=== PATIENT | female | born 1955 | race Caucasian/White ===

== ENCOUNTER 2019-08-27 10:41 | Emergency (ER) | payer MEDICARE ==
[~2019-08-27] VITALS: Ht 152.4 cm; Wt 79.2 kg
[2019-08-27 10:58] LABS: BASOPHILS % (AUTO) 0.6 % (0-1); EOSINOPHILS # (AUTO) 0.1 X10'3 (0-0.9); EOSINOPHILS % (AUTO) 1.4 % (0-6); HEMATOCRIT 38.8 % (35.0-45.0); HEMOGLOBIN 13.2 g/dl (12.0-16.0); LYMPHOCYTES % (AUTO) 28.2 % (21-51); MEAN CORPUSCULAR HEMOGLOBIN 29.6 PG (27.0-31.0); MEAN PLATELET VOLUME 8.5 FL (7.4-10.4); MONOCYTES # (AUTO) 0.6 X10'3 (0-0.9); MONOCYTES % (AUTO) 7.9 % (2-12); NEUTROPHILS # (AUTO) 4.3 X10'3 (1.8-7.7); NEUTROPHILS % (AUTO) 61.9 % (42-75); PLATELET COUNT 293 X10'3 (140-440); RED BLOOD COUNT 4.46 X10'6 (4.20-5.60); RED CELL DISTRIBUTION WIDTH 13.1 % (11.5-14.5)
[2019-08-27 11:14] LABS: ALANINE AMINOTRANSFERASE 25 U/L (12-78); ALBUMIN 3.9 G/DL (3.4-5.0); ALKALINE PHOSPHATASE 119 IU/L (46-116); ANION GAP 6 (8-16); ASPARTATE AMINO TRANSFERASE 20 U/L (10-37); BILIRUBIN,TOTAL 0.2 MG/DL (0.1-1.0); BLOOD UREA NITROGEN 15 MG/DL (7-18); BUN/CREATININE RATIO 16.7 (6.6-38.0); CHLORIDE 104 MMOL/L (99-107); GLUCOSE 114 MG/DL (70-104); POTASSIUM 3.6 MMOL/L (3.5-5.1); SODIUM 140 MMOL/L (135-145); TOTAL CARBON DIOXIDE 30.2 MMOL/L (24-32); TOTAL PROTEIN 7.8 G/DL (6.4-8.2); eGFR 63 ML/MIN
[2019-08-27 12:13] VITALS: BP 133/72
[2019-08-27] MEDS ORDERED: LIDOcaine Viscous 15ml cup MM PRN (12:20)
[2019-08-27] MEDS ORDERED: mag hydrox/Alum hydrox/simeth 30ml oral suspension PO ONE (12:20)
[2019-08-27] MEDS ORDERED: ketorolac tromethamine 15mg/ml inj. IV ONE (12:25)
== END 2019-08-27 12:57 | disposition home or self-care (01) ==
LOC: ER 10:42
DX: R07.89 Other chest pain (principal); T50.995A Adverse effect of other drugs, medicaments and biological substances, initial encounter; R06.02 Shortness of breath; E78.00 Pure hypercholesterolemia, unspecified; I10 Essential (primary) hypertension; E03.9 Hypothyroidism, unspecified; M19.90 Unspecified osteoarthritis, unspecified site; Z88.5 Allergy status to narcotic agent; Y92.89 Other specified places as the place of occurrence of the external cause
CPT/HCPCS: 36415; 71045; 80053; 84484; 85025; 93005; 96374; 99285; J1885

== ENCOUNTER 2021-08-03 10:04 | Emergency (ER) | payer MEDICARE ==
[~2021-08-03] VITALS: Ht 154.9 cm; Wt 75.0 kg
[2021-08-03 10:56] LABS: BASOPHILS % (AUTO) 0.4 % (0-1); EOSINOPHILS # (AUTO) 0.1 X10'3 (0-0.9); EOSINOPHILS % (AUTO) 1.1 % (0-6); HEMOGLOBIN 12.7 g/dl (12.0-16.0); LYMPHOCYTES # (AUTO) 0.7 X10'3 (1.1-4.8); LYMPHOCYTES % (AUTO) 10.3 % (21-51); MEAN CORPUSCULAR HEMOGLOBIN 29.4 PG (27.0-31.0); MEAN CORPUSCULAR HGB CONC 33.3 g/dL (33.0-36.5); MEAN CORPUSCULAR VOLUME 88.2 FL (78-98); MEAN PLATELET VOLUME 8.8 FL (7.4-10.4); MONOCYTES # (AUTO) 0.4 X10'3 (0-0.9); MONOCYTES % (AUTO) 6.2 % (2-12); NEUTROPHILS # (AUTO) 5.7 X10'3 (1.8-7.7); PLATELET COUNT 306 X10'3 (140-440); RED BLOOD COUNT 4.31 X10'6 (4.20-5.60); RED CELL DISTRIBUTION WIDTH 13.6 % (11.5-14.5)
[2021-08-03 11:05] LABS: ALANINE AMINOTRANSFERASE 23 U/L (12-78); ALBUMIN 3.6 G/DL (3.4-5.0); ALKALINE PHOSPHATASE 86 IU/L (46-116); ANION GAP 12 (8-16); ASPARTATE AMINO TRANSFERASE 16 U/L (10-37); BILIRUBIN,TOTAL 0.3 MG/DL (0.1-1.0); BLOOD UREA NITROGEN 18 MG/DL (7-18); BUN/CREATININE RATIO 21.2 (6.6-38.0); CALCIUM 8.5 MG/DL (8.5-10.1); CHLORIDE 102 MMOL/L (99-107); CREATININE 0.85 MG/DL (0.40-0.90); GLUCOSE 110 MG/DL (70-104); LIPASE < 50 U/L (73-393); POTASSIUM 3.7 MMOL/L (3.5-5.1); SODIUM 140 MMOL/L (135-145); TOTAL CARBON DIOXIDE 25.7 MMOL/L (24-32); TOTAL PROTEIN 7.3 G/DL (6.4-8.2); eGFR 67 ML/MIN
[2021-08-03] MEDS ORDERED: iohexol 300mg/ml 100ml inj. ONE (11:20)
[2021-08-03 11:21] LABS: CLARITY,URINE SLIGHTLY CLOUDY (Clear); COLOR,URINE YELLOW (Yellow); GLUCOSE, URINE NEGATIVE (Neg); KETONES,URINE NEGATIVE (Neg); LEUKOCYTE ESTERASE ,URINE NEGATIVE (Neg); NITRITES, URINE NEGATIVE (Neg); OCCULT BLOOD,URINE NEGATIVE (Neg); PH,URINE 6.5 (4.8-8.0); PROTEIN,URINE NEGATIVE (Neg); UROBILINOGEN,URINE 0.2 E.U/dL (0.2-1.0)
[2021-08-03 11:22] LABS: UA COLLECTION TYPE VOIDED
[2021-08-03 11:33] LABS: MUCUS STRANDS MODERATE /LPF (Neg); SQUAMOUS EPITHELIAL CELL,UR MANY /LPF (FEW)
[2021-08-03 11:34] LABS: BACTERIA,URINE 1+ /HPF (Neg); HYALINE CASTS 0-3 /LPF (NEGATIVE); RBC,URINE 0-2 /HPF (0-2); WBC,URINE 0-4 /HPF (0-4)
[2021-08-03 15:14] VITALS: BP 113/61
== END 2021-08-03 15:00 | disposition home or self-care (01) ==
LOC: ER 10:05
DX: R10.11 Right upper quadrant pain (principal); R10.13 Epigastric pain; R10.33 Periumbilical pain; E78.00 Pure hypercholesterolemia, unspecified; I10 Essential (primary) hypertension; E03.9 Hypothyroidism, unspecified; M19.90 Unspecified osteoarthritis, unspecified site; Z87.440 Personal history of urinary (tract) infections; Z88.5 Allergy status to narcotic agent
CPT/HCPCS: 36415; 74177; 76857; 80053; 81001; 83690; 85025; 99285; Q9967

== ENCOUNTER 2021-11-01 05:39 | Day surgery (SDC) | payer MEDICARE ==
[2021-10-24 15:58] LABS: BASOPHILS # (AUTO) 0.1 X10'3 (0-0.2); BASOPHILS % (AUTO) 0.8 % (0-1); EOSINOPHILS # (AUTO) 0.1 X10'3 (0-0.9); EOSINOPHILS % (AUTO) 1.3 % (0-6); LYMPHOCYTES % (AUTO) 26.3 % (21-51); MEAN CORPUSCULAR HEMOGLOBIN 29.4 PG (27.0-31.0); MEAN CORPUSCULAR HGB CONC 33.6 g/dL (33.0-36.5); MEAN CORPUSCULAR VOLUME 87.5 FL (78-98); MEAN PLATELET VOLUME 8.2 FL (7.4-10.4); MONOCYTES # (AUTO) 0.7 X10'3 (0-0.9); MONOCYTES % (AUTO) 8.9 % (2-12); NEUTROPHILS # (AUTO) 4.8 X10'3 (1.8-7.7); NEUTROPHILS % (AUTO) 62.7 % (42-75); PRE OP HEMATOCRIT 36.6 % (35.0-45.0); PRE OP HEMOGLOBIN 12.3 g/dL (12.0-16.0); PRE OP PLATELET COUNT 297 X10'3 (140-440); RED BLOOD COUNT 4.18 X10'6 (4.20-5.60); RED CELL DISTRIBUTION WIDTH 12.8 % (11.5-14.5)
[2021-10-24 16:13] LABS: ALBUMIN 3.6 G/DL (3.4-5.0); ALBUMIN/GLOBULIN RATIO 0.9 (1.1-1.5); ALKALINE PHOSPHATASE 74 IU/L (46-116); BLOOD UREA NITROGEN 19 MG/DL (7-18); BUN/CREATININE RATIO 24.1 (6.6-38.0); CALCIUM 9.1 MG/DL (8.5-10.1); CHLORIDE 101 MMOL/L (99-107); CREATININE 0.79 MG/DL (0.40-0.90); PRE OP ALT 23 U/L (30-65); PRE OP ANION GAP 11 (8-16); PRE OP AST 19 U/L (10-37); PRE OP BILIRUB, TOTAL 0.2 MG/DL (0.0-1.0); PRE OP GLUCOSE 103 MG/DL (70-104); PRE OP SODIUM 139 MMOL/L (135-145); TOTAL PROTEIN 7.5 G/DL (6.4-8.2); eGFR 72 ML/MIN
[2021-10-24 16:19] LABS: PRE OP POTASSIUM 3.3 MMOL/L (3.4-5.1)
[2021-11-01] VITALS (12 sets, daily range): BP systolic 102–133; BP diastolic 56–69
[~2021-11-01] VITALS: Ht 152.4 cm; Wt 81.2 kg
[~2021-11-01 05:39] MED LIST: CELE-85 PO; CITA10TA93 PO; HYDR25TA4 PO; LEVO75TA7 PO; LOSA25TA41 PO; PANT40TA54 PO; ROSU10TA28 PO; [UNRECOGNIZED DRUG - CODE]; ceFOXitin 2GM-NS 100mL ADDvant 100 ML IV ONE; famotidine 20mg tablet PO ONE; ringers solution, lacted 1,000 ML IV SCH
[2021-11-01] MEDS ORDERED: BUPIVAcaine 0.5% inj/PF 30 ML ONE (06:51)
[2021-11-01 06:58] LABS: ISTAT CREATININE 0.7 mg/dL (0.6-1.1); ISTAT HGB 11.2 g/dl (12.0-16.0); ISTAT IONIZED CALCIUM 1.1 mmol/L (1.03-1.32); ISTAT K 3.3 mmol/L (3.5-5.1); POC BUN/CREATININE RATIO 25.7 (6.6-38.0)
[2021-11-01] MEDS ORDERED: midazolam 1 mg/ML 2ml injection ONE (08:17)
[2021-11-01] MEDS ORDERED: fentaNYL/PF 50MCG/1 ML 2ML syringe ONE (08:17)
[2021-11-01] MEDS ORDERED: rocuronium 10mg/ml inj IV ONE (08:18)
[2021-11-01] MEDS ORDERED: LIDOcaine 2% (20mg/ml) 5ml vial ONE (08:19)
[2021-11-01] MEDS ORDERED: propofol inj 20 ML IV ONE (08:19)
[2021-11-01] MEDS ORDERED: glycopyrrolate 0.2mg/ml inj ONE (08:36)
[2021-11-01] MEDS ORDERED: sevoflurane 250ml liquid IH ONE (08:36)
[2021-11-01] MEDS ORDERED: neostigmine methylsulfate 1 MG/ML 10ml vial ONE (08:36)
[2021-11-01] MEDS ORDERED: acetaminophen 1000 MG/100ml vial IV ONE (08:36)
[2021-11-01] MEDS ORDERED: albuterol 60 PUFF/8GM Inhaler IH ONE (08:36)
[2021-11-01] MEDS ORDERED: BUPIVAcaine 0.5% inj/PF 30 ml vial IJ ONE (09:06)
[2021-11-01] MEDS ORDERED: ondansetron/PF 4mg/2ml inj ONE (09:10)
[2021-11-01] MEDS ORDERED: dexamethasone sod phosphate 4mg/ml inj. ONE (09:10)
[2021-11-01] MEDS ORDERED: sugammadex 200mg/2ml injection IV ONE (09:10)
--- NOTE | 2021-11-01 09:23 | NUR ---
Received from OR via , accompanied by Anesthesiologist, DR PETER and report given by Anesthesiolamor AND FLORA MOLINA. VSS, 20G IN LEFT HAND, 10 LITERS ON MASK, PATIENT RESTING NO STATEMENT OF PAIN. ORDERED A BREATHING TX. LAP SITE X 5 CDI. PULSES PALPABLE. Addendum: 11/01/21 at 0948 by Lisha Wallace RN Amended: Links added. Addendum: 11/01/21 at 0950 by Lisha Wallace RN PATIENT ALSO HAS A NO BLOOD BAND ON
[2021-11-01] MEDS ORDERED: meperidine/PF 25mg/ml syringe ONE (09:28)
[2021-11-01] MEDS ORDERED: albuterol 2.5 MG/3 ML nebule NEB ONE (09:35)
[2021-11-01] MEDS ORDERED: proCHLORperazine 10 MG/2 ml inj IV PRN (09:35)
[2021-11-01] MEDS ORDERED: ringers solution, lacted 1,000 ML IV SCH (09:35)
[2021-11-01] MEDS ORDERED: meperidine/PF 25mg/ml syringe IV PRN ×3 (09:35)
[2021-11-01] MEDS ORDERED: ondansetron/PF 4mg/2ml inj IV PRN (09:35)
[2021-11-01] MEDS ORDERED: morphine 4 MG/ML inj SYRINge IV PRN (09:35)
[2021-11-01] MEDS ORDERED: morphine 2 MG/ML inj. syringe IV PRN (09:35)
--- NOTE | 2021-11-01 11:03 | NUR ---
PATIENT MEETS DISCHARGE CRITERIA. VVS. IV DC'D NO COMPLICATIONS. READ AND DISCUSSED DISCHARGE ORDERS, PATIENT VERBALIZED AN UNDERSTANDING OF HER D'C ORDERS. EDUCATED PATIENT ON CONTINUED USE OF HER CPAP FOR THE NEXT 24 HRS. CALLED SO HE COULD SLASHER TENDER HELPER HER PAIN MEDS AND HAVE THEM READY FOR WHEN HE PICKED HER UP. SENT ALL BELONGINGS WITH PATIENT INCLUDING, CELL PHONE, GLASSES, TABLET, AND A COPY OF DISCHARGE ORDERS.
== END 2021-11-01 11:03 | disposition home or self-care (01) ==
LOC: PAS 05:39
PROVIDERS: ATTEND Surgery
DX: K80.10 Calculus of gallbladder with chronic cholecystitis without obstruction (principal); E03.9 Hypothyroidism, unspecified; E78.5 Hyperlipidemia, unspecified; E88.81 Metabolic syndrome and other insulin resistance; K21.9 Gastro-esophageal reflux disease without esophagitis; I12.9 Hypertensive chronic kidney disease with stage 1 through stage 4 chronic kidney disease, or unspecified chronic kidney disease; N18.9 Chronic kidney disease, unspecified; M19.90 Unspecified osteoarthritis, unspecified site; G47.33 Obstructive sleep apnea (adult) (pediatric); E66.9 Obesity, unspecified; Z68.35 Body mass index [BMI] 35.0-35.9, adult; Z20.822 Contact with and (suspected) exposure to COVID-19; Z79.899 Other long term (current) drug therapy; Z90.710 Acquired absence of both cervix and uterus; Z98.890 Other specified postprocedural states; Z88.5 Allergy status to narcotic agent
CPT/HCPCS: 36415; 47562; 80047; 80053; 82948; 85025; 93005; 94640; 94760; J0131; J0694; J1100; J2175; J2250; J2270; J2405; J2704; J2710; J3010; J3490; J7030; J7120; S0020; U0003; U0005; Z7506; Z7512; 88304; A4215; A4618; A7000